=== PATIENT | male | born 1995 | race Caucasian/White ===

== ENCOUNTER 2017-03-19 00:16 | Emergency (ER) | payer OTHER ==
[~2017-03-19] VITALS: Ht 177.8 cm; Wt 71.0 kg
[~2017-03-19 00:16] MED LIST: AMOX875 PO
[2017-03-19 00:20] VITALS: BP 126/82; PULSE 100; RESP 16; TEMP 98.9; O2SAT 97
[2017-03-19] MEDS ORDERED: KETOROLAC TROMETHAMINE 60 MG/2 ML (IM) VIAL IM ONE (00:45)
--- NOTE | 2017-03-19 00:51 | PD ---
HPI Chief Complaint: Flank/Kidney Pain Time Seen by Provider: 00:27 Travel History International Travel<30 days: No Contact w/Intl Traveler<30days: No Traveled to known affect area: No History of Present Illness HPI This is a 21 year old male who presents to the emergency department with 12 hours of fever to 103, and right sided flank pain, severe, worse with deep breaths. The patient reports that for 5 weeks he has had an intermittent cough productive with yellow sputum, and that his symptoms have gotten much worse PFSH Past Medical History Asthma: Yes (D[facility] PT HAS SLIGHT ASTHMA BUT HAS NOT NEEDED TO BE MEDICATED FOR IT.) Anxiety: Yes Diminished Hearing: No Integumentary: Yes (pre cancer removed) Immunizations Current: Yes Social History Alcohol Use: Yes (OCCASIONAL) Tobacco Use: No (HOOKA VAP) Substance Use: No Allergies-Medications (Allergen,Severity, Reaction): Coded Allergies: No Known Allergies (Verified , 03/19/17) Reported Meds & Prescriptions Reported Meds & Active Scripts Active Review of Systems Except as stated in HPI: all other systems reviewed are Neg Physical Exam Narrative GENERAL:Well appearing, no acute distress SKIN: Focused skin assessment warm and dry. HEAD: Atraumatic. Normocephalic. EYES: Pupils equal and round. No injection or drainage. ENT: Moist mucous membranes NECK: Trachea midline. CARDIOVASCULAR: Regular rate and rhythm. No murmur appreciated. RESPIRATORY: Clear to auscultation. Breath sounds equal bilaterally. GASTROINTESTINAL: Abdomen soft, non-tender, nondistended. MUSCULOSKELETAL: No obvious deformities. NEUROLOGICAL: Awake and alert. No obvious cranial nerve deficits. Moving all extremities. PSYCHIATRIC: Appropriate mood and affect; insight and judgment normal. Data Data Last Documented VS Vital Signs Date Time Temp Pulse Resp B/P (MAP) Pulse Ox O2 Delivery O2 Flow Rate FiO2 03/19/17 00:20 98.9 100 16 126/82 (97) 97 Room Air Orders Orders Chest, Pa & Lat (03/19/17 ) Urinalysis - C+S If Indicated (03/19/17 00:36) Ketorolac Inj (Toradol Inj) (03/19/17 00:45) Labs Laboratory Tests Test 03/19/17 00:45 Urine Color COLORLESS Urine Turbidity CLEAR Urine pH 5.0 Urine Specific [place] 1.003 Urine Protein NEG mg/dL Urine Glucose (UA) NEG mg/dL Urine Ketones NEG mg/dL Urine Occult Blood NEG Urine Nitrite NEG Urine Bilirubin NEG Urine Urobilinogen LESS THAN 2.0 MG/DL Urine Leukocyte Esterase NEG Urine WBC LESS THAN 1 /hpf Microscopic Urinalysis Comment CULT NOT INDICATED MDM Medical Decision Making Medical Screen Exam Complete: Yes Emergency Medical Condition: Yes Interpretation(s) Chest x-rays reassuring Urinalysis is negative for infection Differential Diagnosis Bronchitis, pneumonia, pneumothorax, pleurisy, pulmonary embolism Narrative Course This is a 21-year-old male who presents to the emergency department with right pleuritic chest pain in the setting of a prodrome of 5 weeks of productive cough and a fever of 103 today. He is not hypoxic and has no risk factors that I can identify for pulmonary embolism. Given the patient's description of his symptoms I think he has a viral syndrome and has subsequent pleurisy in the setting of chronic cough. Patient was given Toradol in the emergency department. Chest x-ray was reassuring with no evidence of pneumonia. I think given the duration of his symptoms it's reasonable to put him on azithromycin and he'll be treated with Phenergan with codeine for his cough and naproxen for his pain. I think patient is safe for discharge. Diagnosis Primary Impression: Bronchitis Additional Impression: Pleurisy Patient Instructions: General Instructions Additional Instructions: If you develop severe chest pain, shortness of breath, sweating, lightheadedness , dizziness or difficulty breathing return to the emergency department immediately. Followup with your primary care physician in 2-3 days if your symptoms are not resolved. Med/Other Pt SpecificInfo: Prescription(s) given Scripts Naproxen (Naproxen) 500 Mg Tab 500 MG PO BID Y for PAIN SCALE 4 TO 10, #10 TAB 0 Refills Prov: Gladis Hopkins MD 03/19/17 Azithromycin (Azithromycin) 250 Mg Tab 250 MG PO DIRECTED for Infection, #6 TAB 0 Refills Take 2 tabs (500 mg) on day 1 then 1 tab daily x 4 days. Prov: Gladis Hopkins MD 03/19/17 Promethazine-Codeine Liq (Promethazine-Codeine Liq) 6.25-10 Mg/5 Ml Syrp 5 ML PO Q6H Y for COUGH AND/OR COLD SYMPTOMS, #100 ML 0 Refills Prov: Gladis Hopkins MD 03/19/17 Disposition: 01 DISCHARGE HOME Condition: Stable Gladis Hopkins MD Mar 19, 2017 00:51
--- NOTE | 2017-03-19 01:05 | RADRPT ---
EXAM DATE/TIME: 03/19/2017 00:51 [facility] COMPARISON: No previous studies available for comparison. INDICATIONS : Fever and cough x 5 weeks. MEDICAL HISTORY : None. SURGICAL HISTORY : None. ENCOUNTER: Initial ACUITY: 1 month PAIN SCORE: 7/10 LOCATION: Bilateral chest FINDINGS: PA and lateral views of the chest demonstrate the lungs to be symmetrically aerated without evidence of mass, infiltrate or effusion. The cardiomediastinal contours are unremarkable. Osseous structure s are intact. CONCLUSION: No acute cardiopulmonary process. Paulino Puentes MD on March 19, 2017 at 1:03 Board Certified Radiologist. This report was verified electronically.
[2017-03-19 01:10] LABS: BLOOD, URINE NEG (NEG); GLUCOSE,URINE NEG (NEG); KETONE, URINE NEG (NEG); NITRITE,URINE NEG (NEG); URINE COLOR COLORLESS (YELLW/STRAW)
[2017-03-19 01:20] LABS: COMMENT (UR) CULT NOT INDICATED; CULTURE IF INDICATED CULT NOT INDICATED
[2017-03-19] MEDS ORDERED: AZIT250T3 PO (01:30)
[2017-03-19] MEDS ORDERED: PROM6.256 PO (01:30)
[2017-03-19] MEDS ORDERED: NAPR500T PO (01:30)
== END 2017-03-19 02:10 | disposition home or self-care (01) ==
LOC: NEPC 00:16
DX: J40 Bronchitis, not specified as acute or chronic (principal); R09.1 Pleurisy; J45.909 Unspecified asthma, uncomplicated
CPT/HCPCS: 71020; 81001; 96372; 99284; J1885

== ENCOUNTER 2017-08-29 19:44 | Emergency (ER) | payer SELFPAY ==
[~2017-08-29 19:44] MED LIST changes: -AMOX875 PO; +AZIT250T3 PO; +NAPR500T2 PO; +PROM6.256 PO
[2017-08-29 19:51] VITALS: BP 149/91; PULSE 84; RESP 14; TEMP 97.2; O2SAT 99
--- NOTE | 2017-08-29 20:31 | PD ---
HPI Chief Complaint: Fall Time Seen by Provider: 20:23 Travel History International Travel<30 days: No Contact w/Intl Traveler<30days: No Traveled to known affect area: No History of Present Illness HPI The patient is a 22 year old male who presents to the [facility] emergency department with a history of reportedly falling down stairs yesterday before going to work approximately 32 hours ago. The patient reports that he was at the top of the stairs and fell head first and a somersault down the stairs striking his posterior head on the tile floor at the bottom. He denies having any loss of consciousness. He reports that he felt dazed and had blurry vision briefly after the injury. He reports that at this time his main concern is neck pain. He reports that he was able to go to work. He reports that he took Tylenol for the pain yesterday. He reports that initially he had back pain between his shoulders, however that has improved and now this morning when he woke up the neck pain was much worse. The patient reports that he has generalized weakness. He denies having any numbness or tingling to his extremities. He denies having any facial droop, difficulty with word finding ability, or headache at this time. The patient reports having nausea without vomiting. He reports that he was able to eat dinner and drink fluids throughout the day today. On review of systems otherwise, the patient denies having any known recent fevers, cough, congestion, shortness of breath, abdominal pain, diarrhea, urinary symptoms, or neurologic symptoms. The patient reports having posterior left chest wall pain. The patient denies having any loss of bowel or bladder control. He denies having any saddle anesthesia. [facility] Past Medical History Narrative Medical The patient's past medical history is significant for asthma, anxiety, history of melanoma status post resection 7 months ago from his thigh, 4 months ago from his back. He reports that the margins were clear on pathology Asthma: Yes ([facility] PT HAS SLIGHT ASTHMA BUT HAS NOT NEEDED TO BE MEDICATED FOR IT.) Anxiety: Yes Diminished Hearing: No Integumentary: Yes (pre cancer removed) Immunizations Current: Yes Past Surgical History Narrative Surgical The patient's past surgical history is significant for melanoma resection. Surgical History: No Previous Surgery Social History Alcohol Use: Yes (OCCASIONAL) Tobacco Use: Yes (The patient reports that he vaps.) Substance Use: No Allergies-Medications (Allergen,Severity, Reaction): Coded Allergies: No Known Allergies (Verified , 03/19/17) Reported Meds & Prescriptions Reported Meds & Active Scripts Active Hydrocodone-Acetamin 5-325 mg (Hydrocodone/Acetaminophen) 5 Mg-325 Mg Tablet 1 Tab PO Q6HR PRN Flexeril (Cyclobenzaprine HCl) 5 Mg Tab 5 Mg PO TID PRN EC-Naprosyn (Naproxen) 500 Mg Tabdr 500 Mg PO BID PRN Review of Systems Except as stated in HPI: all other systems reviewed are Neg General / Constitutional: No: Fever Eyes: No: Visual changes HENT: Positive: Neck Stiffness, Neck Pain, No: Headaches Cardiovascular: Positive: Chest Pain or Discomfort Respiratory: No: Cough, Shortness of Breath Gastrointestinal: No: Abdominal Pain Genitourinary: No: Dysuria Musculoskeletal: Positive: Myalgias, Limited ROM, Pain Skin: No Rash Neurologic: Positive: Weakness (Generalized weakness), No: Focal Abnormalities , Change in Mentation, Slurred Speech, Sensory Disturbance Psychiatric: No: Depression Endocrine: No: Polydipsia Hematologic/Lymphatic: No: Easy Bruising Physical Exam Narrative General: The patient is a well-developed well-nourished male in no acute distress. Head and Neck exam: Head is normocephalic atraumatic. Eyes: EOMI, pupils are equal round and reactive to light. Nose: Midline septum with pink mucous membranes Mouth: Dentition unremarkable. Moist mucus membranes. Posterior oropharynx is not erythematous. No tonsillar hypertrophy. Uvula midline. Airway patent. Neck: Prior to my arrival in the room the patient was placed in a [place] collar by the triage staff. The patient has a trachea that is midline per Cardiovascular: Regular rate and rhythm without murmurs, gallops, or rubs. The patient reports left lateral posterior chest wall pain. There is no step-off or crepitus. No erythema or ecchymosis. No flail segment Lungs: Clear to auscultation bilaterally. No wheezes, rhonchi, or rales. Abdomen: Soft, without tenderness to palpation in all 4 quadrants of the abdomen. No guarding, rebound, or rigidity. Normal bowel sounds are audible. No tenderness on palpation of McBurney's point. Negative Arango sign. Extremities: No clubbing, cyanosis, or edema. 2+ pulses in all 4 extremities. No calf tenderness on palpation. No pain with range of motion of his extremities. No erythema or ecchymosis. Back: The patient has spinous process tenderness to palpation along the mid thoracic spine between the shoulder blades. No spinous process tenderness on palpation along the lumbar spine. No costovertebral angle tenderness to palpation. Neurologic Exam: Cranial nerves 2-12 were intact on exam. Strength is 5/5 in all 4 extremities. No sensory deficits noted. Skin Exam: No rash noted. Intact skin that is warm and dry. Data Data Last Documented VS Vital Signs Date Time Temp Pulse Resp B/P (MAP) Pulse Ox O2 Delivery O2 Flow Rate FiO2 08/29/17 20:19 Room Air 08/29/17 19:51 97.2 84 14 149/91 (110) [address] Brain W/O Iv Contrast(Rout) (08/29/17 20:30) Ct Cerv Spine W/O Contrast (08/29/17 20:30) Electrocardiogram (08/29/17 20:42) Complete Blood Count With Diff (08/29/17 20:42) Basic Metabolic Panel (Bmp) (08/29/17 20:42) Prothrombin Time / Inr (Pt) (08/29/17 20:42) Act Partial Throm Time (Ptt) (08/29/17 20:42) Chest, Single Ap (08/29/17 20:42) Iv Access Insert/Monitor (08/29/17 20:42) Ecg Monitoring (08/29/17 20:42) Oximetry (08/29/17 20:42) Ct Thor Spine W/O Contrast (08/29/17 ) Sodium Chlorid 0.9% 500 Ml Inj (Ns 500 M (08/29/17 21:45) Morphine Inj (Morphine Inj) (08/29/17 21:45) Ondansetron Inj (Zofran Inj) (08/29/17 21:45) Acetamin-Hydrocod 325-5 Mg ([place] 5-325 (08/29/17 22:00) Labs Laboratory Tests Test 08/29/17 21:00 White Blood Count 5.7 TH/MM3 Red Blood Count 4.75 MIL/MM3 Hemoglobin 16.0 GM/DL Hematocrit 45.7 % Mean Corpuscular Volume 96.2 FL Mean Corpuscular Hemoglobin 33.8 PG Mean Corpuscular Hemoglobin Concent 35.1 % Red Cell Distribution Width 13.3 % Platelet Count 184 TH/MM3 Mean Platelet Volume 8.5 FL Neutrophils (%) (Auto) 51.9 % Lymphocytes (%) (Auto) 39.6 % Monocytes (%) (Auto) 7.1 % Eosinophils (%) (Auto) 0.7 % Basophils (%) (Auto) 0.7 % Neutrophils # (Auto) 3.0 TH/MM3 Lymphocytes # (Auto) 2.3 TH/MM3 Monocytes # (Auto) 0.4 TH/MM3 Eosinophils # (Auto) 0.0 TH/MM3 Basophils # (Auto) 0.0 TH/MM3 CBC Comment DIFF FINAL Differential Comment Prothrombin Time 10.7 SEC Prothromb Time International Ratio 1.1 RATIO Activated Partial Thromboplast Time 27.6 SEC Blood Urea Nitrogen 17 MG/DL Creatinine 1.06 MG/DL Random Glucose 73 MG/DL Calcium Level 9.4 MG/DL Sodium Level 139 MEQ/L Potassium Level 4.0 MEQ/L Chloride Level 105 MEQ/L Carbon Dioxide Level 26.4 MEQ/L Anion Gap 8 MEQ/L Estimat Glomerular Filtration Rate 87 ML/MIN MDM Medical Decision Making Medical Screen Exam Complete: Yes Emergency Medical Condition: Yes Differential Diagnosis Intracranial trauma, versus cervical spine trauma, versus thoracic spine trauma , versus rib fracture, versus chest wall contusion, versus traumatic pneumothorax Narrative Course During the course of the patient's emergency department visit, the patient's history, examination, and differential diagnosis were reviewed with the patient. The patient was placed on a alternative dispute resolution mediator with oximetry and frequent blood pressure monitoring. The patient had IV access obtained and blood work sent for analysis. CT scan of the head, neck, thorax, chest x-ray was ordered. The patient was initially provided normal saline IV fluids, Lortab for pain. The patient's laboratory studies were reviewed and remarkable for CBC, BMP unremarkable Radiology studies were reviewed and remarkable for chest x-ray that shows no acute cardiopulmonary disease, no pneumothorax, CT scan of the head, neck, T- spine showed no acute abnormality. The patient will be discharged home with a prescription for an anti- inflammatory pain medication, hydrocodone, and Flexeril. The patient is resting comfortably and feels better, is alert and in no distress. The patient's results and examination findings were discussed with the patient. The repeat examination is unremarkable and benign. The history, exam, diagnostic testing, and current condition do not suggest any significant pathology to warrant further testing, continued ED treatment, admission, or surgical evaluation at this point. The vital signs have been stable. The patient does not have uncontrollable pain, intractable vomiting, or other significant symptoms. The patient's condition is stable and appropriate for discharge. The patient will pursue further outpatient evaluation with a primary care physician or other designated or consulting physician as indicated in the discharge instructions. The patient expressed understanding and was agreeable with this plan. Diagnosis Primary Impression: Fall (on) (from) other stairs and steps, initial encounter Additional Impressions: Neck pain Back pain Qualified Codes: M54.6 - Pain in thoracic spine Referrals: [facility] 2 days Primary Care Physician 2 days Patient Instructions: Acute Neck Pain (ED), Contusion in Adults (ED), General Instructions, Muscle Strain (ED) Med/Other Pt SpecificInfo: Prescription(s) given Scripts Hydrocodone/Acetaminophen (Hydrocodone-Acetamin 5-325 mg) 5 Mg-325 Mg Tablet 1 TAB PO Q6HR Y for PAIN GREATER THAN 5, #9 Prov: Dee Joe MD 08/29/17 Cyclobenzaprine (Flexeril) 5 Mg Tab 5 MG PO TID Y for SPASM, #15 TAB 0 Refills Prov: Dee Joe MD 08/29/[address] (EC-Naprosyn) 500 Mg Tabdr 500 MG PO BID Y for PAIN LESS THAN 5 ON SCALE, #10 TAB 0 Refills Prov: Dee Joe MD 08/29/17 Disposition: 01 DISCHARGE HOME Condition: Stable Dee Joe MD Aug 29, 2017 20:31
--- NOTE | 2017-08-29 21:31 | RADRPT ---
EXAM DATE/TIME: 08/29/2017 21:03 [facility] COMPARISON: No previous studies available for comparison. INDICATIONS : Patient fell down flight of stairs. MEDICAL HISTORY : melanoma SURGICAL HISTORY : ENCOUNTER: Initial ACUITY: 1 day PAIN SCORE: 8/10 LOCATION: chest FINDINGS: A single view of the chest demonstrates the lungs to be symmetrically aerated without evidence of mas s, infiltrate or effusion. The cardiomediastinal contours are unremarkable. Osseous structures are intact. CONCLUSION: 1. No acute cardiopulmonary disease. Rahat Farnsworth MD on August 29, 2017 at 21:30 Board Certified Radiologist. This report was verified electronically.
[2017-08-29 21:36] LABS: BASOPHIL % 0.7 % (0.0-2.0); EOSINOPHIL % 0.7 % (0.0-4.0); HEMATOCRIT 45.7 % (39.0-51.0); LYMPH % 39.6 % (9.0-44.0); LYMPHOCYTE # 2.3 TH/MM3 (1.0-4.8); MEAN CELL VOLUME 96.2 FL (80.0-100.0); MEAN CORPUSCULAR HEMOGLOBIN 33.8 PG (27.0-34.0); MEAN CORPUSCULAR HGB CONC 35.1 % (32.0-36.0); MEAN PLATELET VOLUME 8.5 FL (7.0-11.0); MONO % 7.1 % (0.0-8.0); MONOCYTE # 0.4 TH/MM3 (0-0.9); NEUT % 51.9 % (16.0-70.0); PLATELET COUNT 184 TH/MM3 (150-450); RED BLOOD COUNT 4.75 MIL/MM3 (4.50-5.90); RED CELL DISTRIBUTION WIDTH 13.3 % (11.6-17.2); WHITE BLOOD COUNT 5.7 TH/MM3 (4.0-11.0)
[2017-08-29] MEDS ORDERED: ONDANSETRON HCL 4 MG/2 ML VIAL IV PUSH ONE (21:45)
[2017-08-29] MEDS ORDERED: MORPHINE SULFATE 4 MG/ML INJ IV PUSH ONE (21:45)
[2017-08-29] MEDS ORDERED: SODIUM CHLORID 0.9% 500 ML INJ 500 ML IV ONE (21:45)
[2017-08-29 21:56] LABS: BICARBONATE 26.4 MEQ/L (21.0-32.0); CALCIUM 9.4 MG/DL (8.5-10.1); CREATININE 1.06 MG/DL (0.60-1.30)
--- NOTE | 2017-08-29 21:59 | RADRPT ---
EXAM DATE/TIME: 08/29/2017 21:09 [facility] COMPARISON: No previous studies available for comparison. INDICATIONS : TRauma, patient fell down steps, neck pain. RADIATION DOSE: 66.34 CTDIvol (mGy) MEDICAL HISTORY : None SURGICAL HISTORY : None. ENCOUNTER: Initial ACUITY: 1 day PAIN SCALE: 5/10 LOCATION: cranial TECHNIQUE: Multiple contiguous axial images were obtained of the head. Using automated exposure control and adj ustment of the mA and/or kV according to patient size, radiation dose was kept as low as reasonably a chievable to obtain optimal diagnostic quality images. DICOM format image data is available electro nically for review and comparison. FINDINGS: There is no evidence of acute cortical infarction, acute hemorrhage, mass effect or midline shift. Th ere is asymmetry of the lateral ventricular system larger on the right than on the left likely congen ital. Posterior fossa structures are unremarkable. There is benign-appearing mucosal disease in the m axillary antra bilaterally. CONCLUSION: 1. No evidence of acute intracranial pathology. No masses are identified. Rahat Farnsworth MD on August 29, 2017 at 21:56 Board Certified Radiologist. This report was verified electronically.
[2017-08-29] MEDS ORDERED: ACETAMINOPHEN/HYDROcodone 325 MG/5 MG TAB PO ONE (22:00)
[2017-08-29 22:01] LABS: INTERNATIONAL NORMALIZED RATIO 1.1 RATIO; PROTHROMBIN TIME - PATIENT 10.7 SEC (9.8-11.6)
--- NOTE | 2017-08-29 22:05 | RADRPT ---
EXAM DATE/TIME: 08/29/2017 21:09 [facility] COMPARISON: No previous studies available for comparison. INDICATIONS : Trauma, patient fell down steps, neck pain. RADIATION DOSE: 24.07 CTDIvol (mGy) MEDICAL HISTORY : None SURGICAL HISTORY : None. ENCOUNTER: Initial ACUITY: 1 day PAIN SCALE: 5/10 LOCATION: neck TECHNIQUE: Volumetric scanning of the cervical spine was performed. Multiplanar reconstructions in the sagittal, coronal and oblique axial planes were performed. Using automated exposure control and adjustment o f the mA and/or kV according to patient size, radiation dose was kept as low as reasonably achievable to obtain optimal diagnostic quality images. DICOM format image data is available electronically f or review and comparison. FINDINGS: VERTEBRAE: Normal vertebral body height. ALIGNMENT: No evidence of subluxation. C2-C3: The bony spinal canal is normal in size. No evidence of disc bulge or herniation. The neural forami na are bilaterally patent. C3-C4: The bony spinal canal is normal in size. No evidence of disc bulge or herniation. The neural forami na are bilaterally patent. C4-C5: The bony spinal canal is normal in size. No evidence of disc bulge or herniation. The neural forami na are bilaterally patent. C5-C6: The bony spinal canal is normal in size. No evidence of disc bulge or herniation. The neural forami na are bilaterally patent. C6-C7: The bony spinal canal is normal in size. No evidence of disc bulge or herniation. The neural forami na are bilaterally patent. C7-T1: The bony spinal canal is normal in size. No evidence of disc bulge or herniation. The neural forami na are bilaterally patent. CONCLUSION: 1. There is no evidence of acute fracture. Rahat Farnsworth MD on August 29, 2017 at 22:02 Board Certified Radiologist. This report was verified electronically.
--- NOTE | 2017-08-29 22:06 | RADRPT ---
EXAM DATE/TIME: 08/29/2017 21:09 [facility] COMPARISON: No previous studies available for comparison. INDICATIONS : Trauma, patient fell down steps, back pain. RADIATION DOSE: 18.26 CTDIvol (mGy) MEDICAL HISTORY : None SURGICAL HISTORY : None. ENCOUNTER: Initial ACUITY: 1 day PAIN SCALE: 5/10 LOCATION: mid back TECHNIQUE: Volumetric scanning of the thoracic spine was performed. Multiplanar reconstructions in the sagittal , coronal and oblique axial planes were performed. Using automated exposure control and adjustment o f the mA and/or kV according to patient size, radiation dose was kept as low as reasonably achievable to obtain optimal diagnostic quality images. DICOM format image data is available electronically f or review and comparison. FINDINGS: The vertebral bodies of the thoracic spine are in normal alignment without evidence of subluxation. Vertebral body height is maintained. No fractures are seen. T1-T2: Normal. T2-T3: The thecal sac has a normal diameter. No evidence of disc bulge or protrusion. T3-T4: The thecal sac has a normal diameter. No evidence of disc bulge or protrusion. T4-T5: The thecal sac has a normal diameter. No evidence of disc bulge or protrusion. T5-T6: The thecal sac has a normal diameter. No evidence of disc bulge or protrusion. T6-T7: The thecal sac has a normal diameter. No evidence of disc bulge or protrusion. T7-T8: The thecal sac has a normal diameter. No evidence of disc bulge or protrusion. T8-T9: The thecal sac has a normal diameter. No evidence of disc bulge or protrusion. T9-T10: The thecal sac has a normal diameter. No evidence of disc bulge or protrusion. T10-T11: The thecal sac has a normal diameter. No evidence of disc bulge or protrusion. T11-T12: The thecal sac has a normal diameter. No evidence of disc bulge or protrusion. T12-L1: The thecal sac has a normal diameter. No evidence of disc bulge or protrusion. CONCLUSION: 1. There is no evidence of acute fracture. Rahat Farnsworth MD on August 29, 2017 at 22:04 Board Certified Radiologist. This report was verified electronically.
[2017-08-29] MEDS ORDERED: HYDR-3516 PO (22:15)
[2017-08-29] MEDS ORDERED: CYCL5TAB PO (22:15)
[2017-08-29] MEDS ORDERED: NAPR-810 PO (22:15)
== END 2017-08-29 22:37 | disposition home or self-care (01) ==
LOC: NEPC 19:44
DX: M54.2 Cervicalgia (principal); M54.6 Pain in thoracic spine; R07.89 Other chest pain; W10.9XXA Fall (on) (from) unspecified stairs and steps, initial encounter; R53.1 Weakness; J45.909 Unspecified asthma, uncomplicated; F41.9 Anxiety disorder, unspecified; Z85.820 Personal history of malignant melanoma of skin; Z72.0 Tobacco use
CPT/HCPCS: 70450; 71045; 72125; 72128; 80048; 85025; 85610; 85730; 96374; 99285; J2405; J7040; L0150

== ENCOUNTER 2017-11-24 17:51 | Emergency (ER) | payer SELFPAY ==
[~2017-11-24] VITALS: Ht 172.7 cm; Wt 65.0 kg
[~2017-11-24 17:51] MED LIST changes: -AZIT250T3 PO; +CYCL5TAB PO; +HYDR-3516 PO; +NAPR-810 PO; -NAPR500T2 PO; -PROM6.256 PO
[2017-11-24 18:47] VITALS: BP 118/71; PULSE 67; RESP 16; TEMP 97.7; O2SAT 98
[2017-11-24 19:59] LABS: AUTOMATED NEUTROPHIL # 3.2 TH/MM3 (1.8-7.7); BASOPHIL % 0.5 % (0.0-2.0); EOSINOPHIL % 0.8 % (0.0-4.0); HEMATOCRIT 46.4 % (39.0-51.0); HEMOGLOBIN 15.7 GM/DL (13.0-17.0); LYMPH % 35.3 % (9.0-44.0); MEAN CELL VOLUME 96.8 FL (80.0-100.0); MEAN CORPUSCULAR HEMOGLOBIN 32.8 PG (27.0-34.0); MEAN CORPUSCULAR HGB CONC 33.9 % (32.0-36.0); MEAN PLATELET VOLUME 8.7 FL (7.0-11.0); MONO % 5.9 % (0.0-8.0); MONOCYTE # 0.3 TH/MM3 (0-0.9); NEUT % 57.5 % (16.0-70.0); PLATELET COUNT 172 TH/MM3 (150-450); RED BLOOD COUNT 4.79 MIL/MM3 (4.50-5.90); RED CELL DISTRIBUTION WIDTH 13.3 % (11.6-17.2); WHITE BLOOD COUNT 5.6 TH/MM3 (4.0-11.0)
[2017-11-24 20:10] LABS: PROTHROMBIN TIME - PATIENT 10.3 SEC (9.8-11.6)
--- NOTE | 2017-11-24 20:19 | PD ---
HPI Chief Complaint: Bleeding Time Seen by Provider: 20:17 Travel History International Travel<30 days: No Contact w/Intl Traveler<30days: No Traveled to known affect area: No History of Present Illness HPI Patient complaints of rectal bleeding, states that he was diagnosed with internal hemorrhoids, and has had this happen on and off intermittently for months. Increase episodes today which prompted the patient to come in and be seen today. No known drug allergy Past medical history significant for asthma, anxiety, occasional smoking and drinking of alcohol PFSH Past Medical History Asthma: Yes (DAD STS PT HAS SLIGHT ASTHMA BUT HAS NOT NEEDED TO BE MEDICATED FOR IT.) Anxiety: Yes Diminished Hearing: No Integumentary: Yes (pre cancer removed) Immunizations Current: Yes Social History Alcohol Use: Yes (OCCASIONAL) Tobacco Use: Yes (The patient reports that he vaps.) Substance Use: No Allergies-Medications (Allergen,Severity, Reaction): Coded Allergies: No Known Allergies (Verified , 03/19/17) Reported Meds & Prescriptions Reported Meds & Active Scripts Active Hydrocodone-Acetamin 5-325 mg (Hydrocodone/Acetaminophen) 5 Mg-325 Mg Tablet 1 Tab PO Q6HR PRN Flexeril (Cyclobenzaprine HCl) 5 Mg Tab 5 Mg PO TID PRN EC-Naprosyn (Naproxen) 500 Mg Tabdr 500 Mg PO BID PRN Review of Systems General / Constitutional: No: Fever Eyes: No: Visual changes HENT: No: Headaches Cardiovascular: No: Chest Pain or Discomfort Respiratory: No: Shortness of Breath Gastrointestinal: Positive: Hematochezia Genitourinary: No: Dysuria Musculoskeletal: No: Pain Skin: No Rash Neurologic: No: Weakness Psychiatric: No: Depression Endocrine: No: Polydipsia Hematologic/Lymphatic: No: Easy Bruising Physical Exam Narrative GENERAL: SKIN: Warm and dry. HEAD: Atraumatic. Normocephalic. EYES: Pupils equal and round. No scleral icterus. No injection or drainage. ENT: No nasal bleeding or discharge. Mucous membranes pink and moist. NECK: Trachea midline. No JVD. CARDIOVASCULAR: Regular rate and rhythm. RESPIRATORY: No accessory muscle use. Clear to auscultation. Breath sounds equal bilaterally. GASTROINTESTINAL: Abdomen soft, non-tender, nondistended. rn at bedside, no external hemorrhoids nor any anal fissure noted, no active bleeding noted on BRIGHT MUSCULOSKELETAL: Extremities without clubbing, cyanosis, or edema. No obvious deformities. NEUROLOGICAL: Awake and alert. No obvious cranial nerve deficits. Motor grossly within normal limits. Five out of 5 muscle strength in the arms and legs. Normal speech. PSYCHIATRIC: Appropriate mood and affect; insight and judgment normal. Data Data Last Documented VS Vital Signs Date Time Temp Pulse Resp B/P (MAP) Pulse Ox O2 Delivery O2 Flow Rate FiO2 11/24/17 18:47 97.7 67 16 118/71 (87) 98 Room Air Orders Orders Complete Blood Count With Diff (11/24/17 19:14) Comprehensive Metabolic Panel (11/24/17 19:14) Prothrombin Time / Inr (Pt) (11/24/17 19:14) Act Partial Throm Time (Ptt) (11/24/17 19:14) Ecg Monitoring (11/24/17 19:14) Orthostatic Vital Signs (11/24/17 19:14) Oximetry (11/24/17 19:14) Oxygen Administration (11/24/17 19:14) Iv Access Insert/Monitor (11/24/17 19:14) Type And Screen (11/24/17 19:14) Mandatory Outpatient Referral (11/24/17 21:01) Ed Discharge Order (11/24/17 21:01) Labs Laboratory Tests Test 11/24/17 19:45 White Blood Count 5.6 TH/MM3 Red Blood Count 4.79 MIL/MM3 Hemoglobin 15.7 GM/DL Hematocrit 46.4 % Mean Corpuscular Volume 96.8 FL Mean Corpuscular Hemoglobin 32.8 PG Mean Corpuscular Hemoglobin Concent 33.9 % Red Cell Distribution Width 13.3 % Platelet Count 172 TH/MM3 Mean Platelet Volume 8.7 FL Neutrophils (%) (Auto) 57.5 % Lymphocytes (%) (Auto) 35.3 % Monocytes (%) (Auto) 5.9 % Eosinophils (%) (Auto) 0.8 % Basophils (%) (Auto) 0.5 % Neutrophils # (Auto) 3.2 TH/MM3 Lymphocytes # (Auto) 2.0 TH/MM3 Monocytes # (Auto) 0.3 TH/MM3 Eosinophils # (Auto) 0.0 TH/MM3 Basophils # (Auto) 0.0 TH/MM3 CBC Comment DIFF FINAL Differential Comment Prothrombin Time 10.3 SEC Prothromb Time International Ratio 1.0 RATIO Activated Partial Thromboplast Time 27.0 SEC Blood Urea Nitrogen 16 MG/DL Creatinine 1.01 MG/DL Random Glucose 87 MG/DL Total Protein 7.8 GM/DL Albumin 4.4 GM/DL Calcium Level 9.2 MG/DL Alkaline Phosphatase 66 U/L Aspartate Amino Transf (AST/SGOT) 20 U/L Alanine Aminotransferase (ALT/SGPT) 40 U/L Total Bilirubin 0.3 MG/DL Sodium Level 142 MEQ/L Potassium Level 3.9 MEQ/L Chloride Level 106 MEQ/L Carbon Dioxide Level 26.8 MEQ/L Anion Gap 9 MEQ/L Estimat Glomerular Filtration Rate 92 ML/MIN MDM Medical Decision Making Medical Screen Exam Complete: Yes Emergency Medical Condition: Yes Medical Record Reviewed: Yes Differential Diagnosis External hemorrhoids versus anal fissure versus proctitis Narrative Course CBC does not show any leukocytosis, no anemia, normal platelet count, no left shift. Coagulation profiles within normal limits ElectroLYTES are within normal limits, normal kidney and liver functions. Diagnosis Primary Impression: Hematochezia resolved Referrals: Mikel Lazaro MD Patient Instructions: General Instructions, Rectal Bleeding (DC) Disposition: DISCHARGE HOME Condition: Stable Ramesh Andrea MD November 24, 2017 20:19
[2017-11-24 20:25] LABS: ALBUMIN 4.4 GM/DL (3.4-5.0); AST (GOT) 20 U/L (15-37); BICARBONATE 26.8 MEQ/L (21.0-32.0); BLOOD UREA NITROGEN 16 MG/DL (7-18); CALCIUM 9.2 MG/DL (8.5-10.1); CHLORIDE 106 MEQ/L (98-107); CREATININE 1.01 MG/DL (0.60-1.30); GLOMERULAR FILTRATION RATE 92 ML/MIN (>89); GLUCOSE,RANDOM 87 MG/DL (74-106); SODIUM (NA) 142 MEQ/L (136-145)
[2017-11-24 20:28] LABS: ALKALINE PHOSPHATASE 66 U/L (45-117); ALT (GPT) 40 U/L (12-78); TOTAL BILIRUBIN ADULT 0.3 MG/DL (0.2-1.0); TOTAL PROTEIN 7.8 GM/DL (6.4-8.2)
== END 2017-11-24 21:25 | disposition home or self-care (01) ==
LOC: NEPC 17:51
DX: K62.5 Hemorrhage of anus and rectum (principal); K64.8 Other hemorrhoids; J45.909 Unspecified asthma, uncomplicated; Z72.0 Tobacco use
CPT/HCPCS: 80053; 85025; 85610; 85730; 86850; 86900; 86901; 99283